=== PATIENT | female | born 2000 | race Caucasian/White ===

== ENCOUNTER 2022-09-30 15:20 | Observation (INO) ==
[2022-09-30 16:23] LABS: Hematocrit (blood only) 29.4 % (37.0-47.0); Hemoglobin 9.6 g/dl (12.0-16.0); Mean Corpuscular Hemoglobin 26.5 pg (25.0-34.0); Mean Corpuscular Hgb Conc 32.7 g/dL (32.0-36.0); Mean Corpuscular Volume 81.2 fL (80.0-100.0); Mean Platelet Volume 10.4 fL (9.4-12.4); Nucleated RBC # (auto) 0.03 K/uL (0-0.12); Nucleated RBC % (auto) 0.2 %; Platelet Count 290 K/uL (130-400); Red Blood Count 3.62 M/uL (4.20-5.40)
[2022-09-30 16:39] LABS: Basophils # (auto) 0.04 K/uL (0-0.2); Basophils % (auto) 0.3 %; Eosinophils # (auto) 0.12 K/uL (0-0.50); Eosinophils % (auto) 0.9 %; Immature Granulocytes # (auto) 0.72 K/uL (0.01-0.20); Immature Granulocytes % (auto) 5.5 %; Lymphocytes # (auto) 1.49 K/uL (1.2-3.4); Lymphocytes % (auto) 11.4 %; Monocytes # (auto) 0.91 K/uL (0.11-0.59); Monocytes % (auto) 6.9 %; Neutrophils # (auto) 9.82 K/uL (1.40-6.50); Polychromasia 1+
[2022-09-30 17:17] LABS: Total Protein Urine Random 42.8 mg/dl (0-11.9)
[2022-09-30 17:18] LABS: Albumin Level 3.3 gm/dl (3.4-5.0); Anion Gap 9 (3-11); Bilirubin,Total 0.2 mg/dl (0.2-1.0); Calcium 9.2 mg/dl (8.6-10.3); Carbon Dioxide 20 mmol/L (21-32); Chloride 103 mmol/L (98-107); Sodium 132 mmol/L (136-145)
[2022-09-30 17:23] LABS: Creatinine Urine Random 128.4 mg/dl; Protein Creatinine Ratio Urine 0.3 (0-0.2)
[2022-09-30 17:24] LABS: Alanine Aminotransferase 12 U/L (7-52); Albumin Globulin Ratio 0.9 (0.9-2); Alkaline Phosphatase 189 U/L (34-104); Aspartate Aminotransferase 20 U/L (13-39); BUN Creatinine Ratio 12.8 (10-20); Blood Urea Nitrogen 6 mg/dl (6-23); Creatinine Clr Calc Pharmacy 227.3 ml/min; Est GFR (African American) > 150.0 ml/min; Est GFR (Non-African American) 142.2 ml/min; Globulin 3.8 gm/dl (2.5-4.0); Glucose 101 mg/dl (70-99(Fasting)); Total Protein 7.1 gm/dl (6.0-8.3)
[2022-09-30] MEDS ORDERED: ACETAMINOPHEN 500 MG TAB PO PRN (18:33)
[2022-09-30] MEDS ORDERED: IRON SUCROSE 300 MG in SODIUM CHLORIDE 0.9% 250 ML IV ONE (19:00)
--- NOTE | 2022-09-30 20:47 | History & Physical Report ---
Date of Service September 30, 2022 Assessment & Plan (1) Elevated blood pressure affecting in third trimester, antepartum: Plan IUP at 37 2/7 weeks with elevated BP once in the office setting with headache and LLE edema. BP's have all been in normal range here in L&D. Headache is getting better with po Tylenol and a meal. I suspect her headache may also be in part due to low Hgb and Hematocrit. PET labs are also normal except for urine protein/creatinine ratio of 0.3 and Hgb of 9.6. We will watch overnight with serial labs and BP checks. We will also give 2 doses of Venofer 300mg during her stay. History of Present Illness Primary Care Provider: NO PCP Patient is a 22-year-old G1, P0 female EDC of 10/19/2022 who presented with a headache that she rates 9 out of 10 but without visual changes. She also noted increased swelling in her legs. She was evaluated in the office and her pressure was 140/90 so she was sent to labor and delivery for serial blood press ures and blood work. She denies any epigastric pain but she does feel she may be having some contractions at this point. GBS is positive. has also been complicated by iron deficiency anemia for which she may or may not been taking her iron regularly. Allergies Allergy/AdvReac Type Severity Reaction Status Date / Time latex Allergy Hives Verified 09/30/22 15:05 Home Medications Medication Instructions Recorded Confirmed Type prenat.vits,nia,mpq-dcfm-vgeun 1 tab PO DAILY 04/25/22 09/30/22 History ferrous sulfate 325 mg (65 mg 325 mg PO Q OTHER DAY #30 tabs 08/22/22 09/30/22 Rx iron) tablet Patient History Medical History (Updated 09/30/22 @ 20:53 by Britany Domingo MD, FACOG) UTI (urinary tract infection) Varicella vaccination Surgical History S/P wisdom tooth extraction Family History Grandmother (Maternal) Diabetes Denies family history of Ovarian cancer Breast cancer Colorectal cancer Social History (Updated 08/06/22 @ 21:21 by Irina L Pietropaolo, RN) Smoking Status: Former smoker Tobacco Type: E-cigarettes / Vaping Second Hand Exposure: No; Hx Alcohol Use: No Hx Substance Use: No Preferred Language: Hong Konger Rn Security Required: No Beliefs That Will Affect Care: None marital status: Single marital status details: estefany Romero (20) [phone] Current Living Situation: Significant Other Current Living Situation Comment: lives with fomarci, dede current occupational status: employed current occupation: [employer] Feels Safe at Home: Yes Review of Systems All systems reviewed & are unremarkable except as noted in HPI & below Physical Exam Constitutional: WD/WN, vitals as above Neurologic: reflexes are normal Psychiatric: A+Ox3, euthymic affect Genitourinary: OB Exam Abdomen: + vertex (by ultrasound), + estimated weight (6-7 pounds) and + irregular contractions Manual OB Exam: + cervical dilation fingertip, + cervical effacement 50% and + station high OB Exam Monitor Tracing: + external FHT monitor used, + external uterine monitor used, + category I and + normal FHT variability Results & Data Vital Signs (Past 12 Hours) Vital Signs Pulse Resp BP 09/30/22 16:23 97 H 22 123/74 09/30/22 18:17 96 H 09/30/22 18:17 108/64 09/30/22 18:08 99 H 09/30/22 18:08 120/73 09/30/22 17:58 94 H 09/30/22 17:58 130/71 09/30/22 17:48 94 H 09/30/22 17:48 116/60 09/30/22 17:36 101 H 09/30/22 17:36 118/68 09/30/22 17:27 96 H 09/30/22 17:27 117/73 09/30/22 17:18 93 H 09/30/22 17:18 121/75 09/30/22 17:08 104 H 09/30/22 17:08 122/87 09/30/22 16:58 95 H 09/30/22 16:58 120/70 09/30/22 16:47 93 H 09/30/22 16:47 112/71 09/30/22 16:36 95 H 09/30/22 16:36 117/68 09/30/22 16:27 95 H 09/30/22 16:27 117/76 09/30/22 16:18 97 H 123/74 09/30/22 16:07 97 H 120/67 09/30/22 15:58 102 H 124/63 09/30/22 15:46 103 H 124/67 09/30/22 15:36 105 H 126/69 Coding Level of Care Code 01656 INT INP/OBS CARE 1/40MIN Diagnoses Elevated blood pressure affecting in third trimester, antepartum O16.3
[2022-09-30 23:50] LABS: Basophils # (auto) 0.04 K/uL (0-0.2); Basophils % (auto) 0.3 %; Eosinophils # (auto) 0.06 K/uL (0-0.50); Eosinophils % (auto) 0.5 %; Hematocrit (blood only) 29.5 % (37.0-47.0); Hemoglobin 9.7 g/dl (12.0-16.0); Immature Granulocytes # (auto) 0.57 K/uL (0.01-0.20); Immature Granulocytes % (auto) 4.5 %; Lymphocytes # (auto) 1.68 K/uL (1.2-3.4); Lymphocytes % (auto) 13.1 %; Mean Corpuscular Hemoglobin 26.6 pg (25.0-34.0); Mean Corpuscular Hgb Conc 32.9 g/dL (32.0-36.0); Mean Corpuscular Volume 80.8 fL (80.0-100.0); Mean Platelet Volume 10.4 fL (9.4-12.4); Monocytes # (auto) 0.66 K/uL (0.11-0.59); Monocytes % (auto) 5.2 %; Neutrophils # (auto) 9.79 K/uL (1.40-6.50); Neutrophils % (auto) 76.4 %; Nucleated RBC # (auto) 0.04 K/uL (0-0.12); Nucleated RBC % (auto) 0.3 %; Platelet Count 316 K/uL (130-400); RDW Coefficient of Variation 14.1 % (11.5-14.5); RDW Standard Deviation 41.2 fL (36.4-46.3); Red Blood Count 3.65 M/uL (4.20-5.40)
[2022-09-30] MEDS: BUTORPHANOL TARTRATE 1 MG/ML VIAL IV PRN (23:58)
[2022-10-01 00:12] LABS: Albumin Level 3.3 gm/dl (3.4-5.0); Bilirubin,Total 0.2 mg/dl (0.2-1.0); Creatinine Clr Calc Pharmacy 138.8 ml/min; Est GFR (African American) 128.8 ml/min; Est GFR (Non-African American) 111.1 ml/min; Total Protein 7.3 gm/dl (6.0-8.3)
[2022-10-01] MEDS: BUTORPHANOL TARTRATE 1 MG/ML VIAL IV PRN (03:06)
[2022-10-01 06:48] LABS: Hematocrit (blood only) 29.1 % (37.0-47.0); Hemoglobin 9.2 g/dl (12.0-16.0); Mean Corpuscular Hemoglobin 26.1 pg (25.0-34.0); Mean Corpuscular Hgb Conc 31.6 g/dL (32.0-36.0); Mean Corpuscular Volume 82.4 fL (80.0-100.0); Mean Platelet Volume 10.7 fL (9.4-12.4); Nucleated RBC # (auto) 0.05 K/uL (0-0.12); Nucleated RBC % (auto) 0.4 %; Platelet Count 297 K/uL (130-400); RDW Coefficient of Variation 14.2 % (11.5-14.5); Red Blood Count 3.53 M/uL (4.20-5.40); White Blood Count 13.65 K/ul (4.8-10.8)
[2022-10-01 06:59] LABS: Alanine Aminotransferase 12 U/L (7-52); Albumin Level 3.2 gm/dl (3.4-5.0); Alkaline Phosphatase 182 U/L (34-104); Aspartate Aminotransferase 17 U/L (13-39); Bilirubin,Total 0.2 mg/dl (0.2-1.0); Creatinine Clr Calc Pharmacy 194.3 ml/min; Est GFR (African American) > 150.0 ml/min
[2022-10-01 07:18] LABS: Basophils # (auto) 0.03 K/uL (0-0.2); Basophils % (auto) 0.2 %; Eosinophils # (auto) 0.13 K/uL (0-0.50); Immature Granulocytes # (auto) 0.71 K/uL (0.01-0.20); Immature Granulocytes % (auto) 5.2 %; Lymphocytes # (auto) 1.59 K/uL (1.2-3.4); Lymphocytes % (auto) 11.6 %; Monocytes # (auto) 1.11 K/uL (0.11-0.59); Monocytes % (auto) 8.1 %; Neutrophils # (auto) 10.08 K/uL (1.40-6.50); Neutrophils % (auto) 73.9 %
--- NOTE | 2022-10-01 07:33 | Obstetrical Progress Note ---
Date of Service October 01, 2022 Assessment & Plan (1) Elevated blood pressure affecting in third trimester, antepartum: Plan: BP normotensive during last 18 hours in L&D PIH labs are all normal- except urine protein/creatinine ratio at 0.3. will discharge to home and recheck BP in 1 week- sooner if any PET symptoms reoccur. Admission and Anticipated Discharge Date Admission Date: September 30, 2022 Subjective still complaining of back pain and feeling hot. patient also has been complaining of contractions as well. no change in discharge -no vaginal bleeding. no PIH symptoms. labs are all normal and BP has been normotensive. Review of Systems Review of Systems: All systems reviewed & are unremarkable except as noted in HPI & below Physical Exam Constitutional: WD/WN, vitals as above Psychiatric: A+Ox3, euthymic affect Genitourinary: OB Exam Abdomen: + vertex and + irregular contractions (artifact from patient activity but only sporadic contractions.) Manual OB Exam: + cervical dilation fingertip, + cervical effacement 50% and + station high OB Exam Monitor Tracing: + external FHT monitor used, + external uterine monitor used, + category I and + normal FHT variability Results & Data Vital Signs (Past 12 Hours) Vital Signs Temp Pulse Resp BP Pulse Ox 10/01/22 06:28 18 10/01/22 06:28 18 10/01/22 06:28 108 H 18 121/58 L 10/01/22 04:00 18 10/01/22 04:00 98.2 F 18 10/01/22 04:01 93 H 120/66 94 10/01/22 04:00 98.2 F 102 H 18 97 10/01/22 03:55 104 H 97 10/01/22 03:50 106 H 97 10/01/22 03:45 88 96 10/01/22 03:40 107 H 96 10/01/22 03:35 105 H 96 10/01/22 03:30 101 H 96 10/01/22 03:25 96 H 98 10/01/22 03:20 97 H 97 10/01/22 01:43 98 H 98 10/01/22 01:38 92 H 98 10/01/22 01:33 98 H 98 10/01/22 01:28 102 H 98 10/01/22 01:23 103 H 97 10/01/22 01:18 109 H 98 10/01/22 01:13 98 H 97 10/01/22 01:08 104 H 98 10/01/22 01:03 104 H 97 10/01/22 00:58 107 H 97 10/01/22 00:53 103 H 97 10/01/22 00:48 98 H 97 10/01/22 00:43 103 H 97 10/01/22 00:38 104 H 98 10/01/22 00:33 99 H 97 10/01/22 00:28 95 H 97 10/01/22 00:23 108 H 98 10/01/22 00:00 18 10/01/22 00:00 98.6 F 18 10/01/22 00:18 98 H 98 10/01/22 00:13 106 H 98 10/01/22 00:08 103 H 98 10/01/22 00:03 98 H 98 09/30/22 23:49 100 H 09/30/22 23:49 132/68 09/30/22 20:19 110 H 09/30/22 20:19 123/65 09/30/22 20:05 117 H 09/30/22 20:05 116/64 09/30/22 19:51 116 H 09/30/22 19:51 137/60 PG Care Time/CCT Total # of Minutes Spent Total Time Spent with Patient: Total time spent is greater than 50% in coordination of care (as documented) at patient's floor/unit and/or counseling patient: Coding Level of Care Code 87276 SUB INP/OBS CARE 2/35MIN Diagnoses Elevated blood pressure affecting in third trimester, antepartum O16.3
== END 2022-10-01 07:57 | disposition home or self-care (01) ==
LOC: 4S1 15:20 → OPB 15:20 → 4S1 15:21

== ENCOUNTER 2022-10-14 12:51 | Inpatient (IN) ==
[2022-10-14] MEDS ORDERED: OXYTOCIN 30 UNITS/500 ML BAG IV PRN ×3 (14:08→22:08)
[2022-10-14] MEDS ORDERED: LACTATED RINGER'S 1,000 ML IV PRN (14:08)
[2022-10-14] MEDS ORDERED: LIDOCAINE 1% LOCAL 20 ML VIAL INFIL PRN (14:08)
--- NOTE | 2022-10-14 14:21 | History & Physical Report ---
Date of Service October 14, 2022 Assessment & Plan (1) 39 weeks gestation of : Plan Isela is a 22 year-old at 39w2d who presents today after SROM. -Rupture of membranes confirmed in outpatient office, patient admitted to L&D. -GBS positive, will start Penicillin -Currently at 2cm/80%. T cat 1. -Given 8+ hours since ROM and contractions only every 5 minutes, will start Pitocin. Patient in agreement. -Patient inquires about epidural, can receive epidural when desired Admission and Anticipated Discharge Date Admission Date: October 14, 2022 History of Present Illness Primary Care Provider: NO PCP Isela is a 22 year-old at 39w2d who presents today after SROM. She notes that last night she was evaluated on L&D to rule out labor and decreased movement, after evaluation she was discharged to home. This morning she awoke at 5:30am to wet sheets- she does not know what time this started but has had fluid leaking since that time. Today she was evaluated in office by Dr. Vu and was found to have positive rupture of membranes. She notes +FM (increased from yesterday) and has contractions every 5 minutes. -B+/GBS positive/Rubella immune OB-[facility] A [facility] History -No prior pregnancies -No history of abnormal PAPs, no known history of STDs Allergies Allergy/AdvReac Type Severity Reaction Status Date / Time latex Allergy Hives Verified 10/14/22 12:22 Home Medications Medication Instructions Recorded Confirmed Type prenat.vits,nia,vxd-byiw-imord 1 tab PO DAILY 04/25/22 10/14/22 History ferrous sulfate 325 mg (65 mg 325 mg PO Q OTHER DAY #30 tabs 08/22/22 10/14/22 Rx iron) tablet Patient History Medical History UTI (urinary tract infection) Varicella vaccination Surgical History S/P wisdom tooth extraction Family History Grandmother (Maternal) Diabetes Denies family history of Ovarian cancer Breast cancer Colorectal cancer Social History (Updated 10/14/22 @ 13:31 by DESMOND Fabian Smoking Status: Former smoker Tobacco Type: E-cigarettes / Vaping Second Hand Exposure: No; Hx Alcohol Use: No Hx Substance Use: No Preferred Language: Slovenian Communication Ability: Effective Twist Tester Required: No Beliefs That Will Affect Care: None marital status: Single marital status details: estefany Romero (20) [phone] Current Living Situation: Spouse Current Living Situation Comment: lives with boyfriend and dog current occupational status: employed current occupation: [email or web address] Other Information That Helps Us Care for You: No Feels Safe at Home: Yes Safety Concerns: Feels Safe At This Time Assistive Devices: None LINEMAN A CLASS History Initial OB Labs-03/12/22 Blood Type & RH B positive Antibody Screen Negative HCT/HGB 40.3/13.4 Platelets 384 Hep C IgG 13yrs+ Old non-reactive Pap Test Chlamydia not detected Gonorrhea not detected Rubella Immune RPR non-reactive Urine Culture/Screen <30,000 mixed gram positive jazmin HBsAg non-reactive HIV non-reactive MCV 86.2 Review of Systems As per above Physical Exam Constitutional: WD/WN, vitals as above Eyes: Anicteric sclera ENMT: External ears and nose normal, moist mucous membranes Respiratory: No increased work of breathing, good aeration. Cardiovascular: Normal rate, regular rhythm. Skin: no rashes, warm and dry Genitourinary: Manual OB Exam: + cervical dilation 2 cm and + cervical effacement 80% OB Exam Monitor Tracing: + external FHT monitor used and + category I Exam per Dr. Vu (in outpatient office prior to arrival) Results & Data Vital Signs (Past 12 Hours) Vital Signs Temp Pulse Resp BP 10/14/22 13:31 36.8 C 20 10/14/22 13:14 97 H 134/86 Supervising Physician Co-Signing Physician Notes Resident Physician Supervision Note: I interviewed and examined the patient. Discussed with Dr. Woodall and agree with findings and plan as documented in the note. Any exceptions or clarifications are listed here: 39 weeks, prom for many hours. confirmed in the office, grossly ruptured. Some contractions but not a pattern. Plan pitocin augmentation, epidural on demand. Fetus is category one. but does have periods of some minimal variability. 8/8 bpp yesterday in the office after a reassuring but nonreactive nst. Has had some mildly elevated blood pressures in the last couple of weeks but no s/s of pet. Documented By: Ellen Monzon MD, FACOG Resident Activity Tracking Resident Involvement: Resident Care Provided Care Provided: OB Delivery
[2022-10-14] MEDS ORDERED: PENICILLIN G POTASSIUM 6 MU in DEXTROSE 5% 250 ML IV ONE (14:30)
[2022-10-14 14:49] LABS: Hematocrit (blood only) 33.6 % (37.0-47.0); Hemoglobin 10.9 g/dl (12.0-16.0); Mean Corpuscular Hemoglobin 27.2 pg (25.0-34.0); Mean Corpuscular Hgb Conc 32.4 g/dL (32.0-36.0); Mean Corpuscular Volume 83.8 fL (80.0-100.0); Mean Platelet Volume 11.2 fL (9.4-12.4); Platelet Count 294 K/uL (130-400); RDW Coefficient of Variation 18.1 % (11.5-14.5); RDW Standard Deviation 52.5 fL (36.4-46.3); Red Blood Count 4.01 M/uL (4.20-5.40); White Blood Count 14.83 K/ul (4.8-10.8)
[2022-10-14 15:27] LABS: Alanine Aminotransferase 13 U/L (7-52); Albumin Globulin Ratio 0.9 (0.9-2); Albumin Level 3.5 gm/dl (3.4-5.0); Alkaline Phosphatase 194 U/L (34-104); Anion Gap 9 (3-11); Aspartate Aminotransferase 20 U/L (13-39); Bilirubin,Total 0.3 mg/dl (0.2-1.0); Blood Urea Nitrogen 11 mg/dl (6-23); Calcium 9.5 mg/dl (8.6-10.3); Carbon Dioxide 21 mmol/L (21-32); Chloride 103 mmol/L (98-107); Creatinine Clr Calc Pharmacy 244.3 ml/min; Est GFR (African American) > 150.0 ml/min; Est GFR (Non-African American) 145.3 ml/min; Globulin 3.8 gm/dl (2.5-4.0); Glucose 87 mg/dl (70-99(Fasting)); Potassium 4.2 mmol/L (3.5-5.1); Sodium 133 mmol/L (136-145); Total Protein 7.3 gm/dl (6.0-8.3)
[2022-10-14] MEDS ORDERED: ePHEDrine sulfate 50 MG/ML AMP ONE (16:58)
[2022-10-14] MEDS ORDERED: fentaNYL citrate PF 100 MCG/2 ML VIAL ONE (16:58)
[2022-10-14] MEDS ORDERED: SODIUM CHLORIDE 0.9% PF INJ 10 ML VIAL ONE (16:58)
[2022-10-14] MEDS ORDERED: BUPIVACAINE 0.25% PF 30 ML VIAL ONE (16:58)
[2022-10-14] MEDS ORDERED: fentaNYL 2MCG/ML ROPIVACAINE 1.25MG/ML 100 ML BAG EPI ONE (16:59)
[2022-10-14] MEDS ORDERED: LIDOCAINE 2%/EPINEPHRINE 1:200,000 20 ML PF ONE (16:59)
[2022-10-14] MEDS ORDERED: PENICILLIN G POTASSIUM 3 MU in DEXTROSE 5% 100 ML IV PRN (17:09)
--- NOTE | 2022-10-14 17:18 | Anesthesiology Consultation ---
Date of Service October 14, 2022 Assessment & Plan (1) Encounter for pre-operative examination: Chart Review Chart Review: Patient NOT seen in Pre Admission Testing and Acceptable Risk for Labor Epidural Consults Requested none History Height/Weight Height: 5 ft 3 in Weight: 111.13 kg Allergies Allergy/AdvReac Type Severity Reaction Status Date / Time latex Allergy Hives Verified 10/14/22 12:22 Medications Home Medications Medication Instructions Recorded Confirmed Last Taken prenat.vits,nia,kxg-zdwk-nkasw 1 tab PO DAILY 04/25/22 10/14/22 10/14/22 ferrous sulfate 325 mg (65 mg 325 mg PO Q OTHER DAY #30 tabs 08/22/22 10/14/22 10/14/22 iron) tablet Active Medications Generic Name Dose Route Start Last Admin Trade Name Freq PRN Reason Stop Dose Admin Lactated Ringer's 1,000 mls @ 125 mls/hr 10/14/22 14:08 10/14/22 16:56 Lr IV 10/16/22 14:07 999 mls/hr .Q8H PRN Infusion L&D Protocol Protocol Oxytocin 30 units in 500 mls @ 4 mls/hr 10/14/22 14:08 10/14/22 16:15 Pitocin IV 10/16/22 14:07 0.24 units/hr .Q24H PRN 4 mls/hr Labor Induction/Augmentation Titration Protocol 0.24 UNITS/HR Past Medical History Medical History UTI (urinary tract infection) Varicella vaccination Past Family History Family History Grandmother (Maternal) Diabetes Denies family history of Ovarian cancer Breast cancer Colorectal cancer Past Surgical History Surgical History S/P wisdom tooth extraction Social History Smoking Status: Former smoker tobacco type: e-cigarettes Hx Alcohol Use: No Hx Substance Use: No substance use type: does not use Physical Exam Vital Signs Last Vital Signs Temp 98.6 F 10/14/22 15:35 Pulse 84 10/14/22 17:13 Resp 20 10/14/22 16:30 BP 140/94 10/14/22 17:13 Pulse Ox 97 10/14/22 17:13 Testing Laboratory Results 10/14/22 14:21 10/14/22 14:21 Blood Type B Positive 10/14/22 14:25 Antibody Screen NEGATIVE 10/14/22 14:25
[2022-10-14] MEDS ORDERED: NALBUPHINE HCL INJ 10 MG/ML AMP IV PRN (17:23)
[2022-10-14] MEDS ORDERED: fentaNYL 2MCG/ML ROPIVACAINE 1.25MG/ML 100 ML BAG EPI PRN (17:23)
[2022-10-14] MEDS ORDERED: ePHEDrine sulfate 50 MG/ML AMP IV PRN (17:23)
[2022-10-14] MEDS ORDERED: NALOXONE HCL 0.4 MG/1 ML VIAL/CARP IV PRN (17:23)
[2022-10-14] MEDS ORDERED: diphenhydrAMINE 50 MG/ML VIAL IV PRN (17:23)
[2022-10-14] MEDS ORDERED: NALOXONE HCL 1 MG in SODIUM CHLORIDE 0.9% 1000ML 1,000 ML IV PRN (17:23)
--- NOTE | 2022-10-14 19:00 | Labor Progress Brief Note ---
Date of Service October 14, 2022 Subjective comfortable with epidural Assessment & Plan (1) 39 weeks gestation of : (2) PROM (premature rupture of membranes): Plan making nice progress. fetus overall category one. anticipate . Admission and Anticipated Discharge Date Admission Date: October 14, 2022 Physical Exam Physical Exam: cx--5-6/100/-1 toco--q2-3min, pit at 6 efm--140s with mod variability, small accels, one variable noted. Results & Data Vital Signs (Past 12 Hours) Vital Signs Temp Pulse Resp BP Pulse Ox 10/14/22 13:31 36.8 C 20 10/14/22 18:54 96 10/14/22 18:54 117 H 10/14/22 18:54 102 H 118/63 10/14/22 18:49 105 H 96 10/14/22 18:44 99 H 97 10/14/22 18:39 107 H 107/53 L 97 10/14/22 18:30 20 10/14/22 18:30 20 10/14/22 18:34 102 H 97 10/14/22 18:29 106 H 97 10/14/22 18:26 102 H 120/59 L 10/14/22 18:24 103 H 95 10/14/22 18:19 104 H 96 10/14/22 18:14 103 H 96 10/14/22 18:09 97 10/14/22 18:09 105 H 10/14/22 18:09 100 H 109/58 L 10/14/22 18:04 98 H 111/56 L 95 10/14/22 18:00 18 10/14/22 18:00 18 10/14/22 17:59 102 H 117/61 95 10/14/22 17:55 91 H 113/64 10/14/22 17:54 90 96 10/14/22 17:48 97 H 96 10/14/22 17:47 81 137/67 10/14/22 17:45 37.1 C 92 H 172/85 H 10/14/22 17:43 89 158/96 H 96 10/14/22 17:41 93 H 141/93 H 10/14/22 17:39 85 135/76 10/14/22 17:38 95 H 95 10/14/22 17:37 109 H 139/86 10/14/22 17:35 97 H 136/80 10/14/22 17:33 90 96 10/14/22 17:28 106 H 97 10/14/22 17:27 106 H 94 10/14/22 17:23 100 H 96 10/14/22 17:00 20 10/14/22 17:00 20 10/14/22 17:18 89 96 10/14/22 17:13 97 10/14/22 17:13 84 10/14/22 17:13 72 140/94 10/14/22 16:00 20 10/14/22 16:00 20 10/14/22 16:30 20 10/14/22 16:30 20 10/14/22 15:35 37.0 C 10/14/22 15:30 20 10/14/22 15:30 20 10/14/22 15:00 20 10/14/22 15:00 20 10/14/22 14:30 20 10/14/22 14:30 20 10/14/22 15:31 96 H 137/82 10/14/22 14:00 20 10/14/22 14:00 20 10/14/22 13:14 97 H 134/86 Coding Level of Care Code None Diagnoses 39 weeks gestation of Z3A.39 PROM (premature rupture of membranes) O42.90
[2022-10-14] MEDS ORDERED: BENZOCAINE 20% AER SPR 82.5 GM CAN EXT PRN (22:08)
[2022-10-14] MEDS ORDERED: HYDROCORTISONE ACETATE 25 MG SUPP PR PRN (22:08)
[2022-10-14] MEDS ORDERED: oxyCODONE/ACETAMINOPHEN 5mg/325mg TAB PO PRN (22:08)
[2022-10-14] MEDS ORDERED: bisacodyL 10 MG SUPP PR PRN (22:08)
[2022-10-14] MEDS ORDERED: DIPHTHERIA/TETANUS/PERTUSSIS 0.5mL SYR/VIAL (Age 7+yrs) IM ONE (22:08)
[2022-10-14] MEDS ORDERED: ACETAMINOPHEN 325 MG TAB PO PRN (22:08)
--- NOTE | 2022-10-14 22:13 | Delivery Summary ---
Vaginal Delivery Summary Date of Service October 14, 2022 Vaginal Delivery Summary and 1st Degree LAC Pre-operative Diagnosis: at 39 2/7 weeks pprom Post-operative Diagnosis: same Procedure: pitocin augmentation, epidural first degree laceration and repair EBL: 400cc Anesthesia: epidural Procedure: Patient presented to labor and delivery with gross srom. She underwent pit augmentation and epidural. She progressed to c/c/+2. The patient pushed for about 20 minutes to deliver a viable female infant in farhad position. A loose nuchal cord x 1 was reduced. A shoulder dystocia was then encountered which was resolved in less than one minute with flatening the patient, suprapubic pressure and Andreas maneuver. The rest of the was then delivered without difficulty. The nose and mouth were bulb suctioned and the was placed in the maternal abdomen for drying and attention. Cord was clamped and cut at one minute of time. Cord blood and segment obtained. Placenta delivered spontaneous, intact with a three vessel cord. Cerv ix/sulci/rectum were intact. A first degree perineal laceration was repaired in the normal standard fashion. Hemostasis obtained with dilute pitocin and fundal massage. Apgars were 8/9. Mother and baby doing well at the end of the delivery. [facility] Vaginal Delivery Charge Delivery Type Details: and 1st Degree LAC
[2022-10-15] MEDS: IBUPROFEN 600 MG TAB PO PRN ×3 (05:11→20:31)
--- NOTE | 2022-10-15 05:44 | Obstetrical Progress Note ---
Date of Service October 15, 2022 Assessment & Plan (1) PROM (premature rupture of membranes): (2) Encounter for pre-operative examination: (3) Decreased movement: (4) 39 weeks gestation of : Plan Isela is a 22yo who is PPD#1 following at 39w3d. -Meeting all milestones -Vitals reviewed and WNL, hemoglobin stable -B+/GBS positive/Rubella immune. Received penicillin in labor. -Follow up in 6 weeks for appointment -Continue routine care -Placed order for MICHAEL hose per patient request Admission and Anticipated Discharge Date Admission Date: October 14, 2022 Supervising Physician Co-Signing Physician Notes Resident Physician Supervision Note: I interviewed and examined the patient. Discussed with Dr. Quach and agree with findings and plan as documented in the note. Any exceptions or clarifications are listed here: Doing well day one. Plan routine care. Documented By: Ellen Monzon MD, FACOG Subjective Isela is a 22 y/o female who is PPD #1 following delivery at 39 weeks. She reports feeling well overall this morning. Notes some mild abdominal cramping but pain is well managed on analgesics. Voiding without issue. Tolerating meals overnight and able to ambulate some. Endorses passing gas. Has some persistent lochia with some improvement this morning. Currently formula feeding. She requests MICHAEL hose. Review of Systems Constitutional: no fever, no chills and no sweats Respiratory: no cough, no dyspnea and no wheezing Cardiovascular: no chest pain, no palpitations and no calf pain Genitourinary: no dysuria Neurologic: no headache(s) Physical Exam Constitutional: WD/WN, vitals as above no acute distress Respiratory: no respiratory distress Auscultation: lungs clear to auscultation bilaterally; no rales, no rhonchi and no wheezes Cardiovascular: RRR, no murmur, no edema Extremities: no calf tenderness and no edema Negative Elsi's sign bilaterally. Gastrointestinal (Abdomen): Inspection/Auscultation: normal bowel sounds Genitourinary: Uterine fundus firm, palpable below the umbilicus. Results & Data Vital Signs (Past 12 Hours) Vital Signs Temp Pulse Pulse Resp BP BP Pulse Ox 10/15/22 04:15 36.8 C 102 H 16 112/70 97 10/15/22 00:31 37.5 C 117 H 16 140/80 97 10/15/22 00:09 141 H 18 117/56 L 10/14/22 23:54 121 H 129/62 10/14/22 23:39 127 H 18 125/57 L 10/14/22 23:24 118 H 132/69 10/14/22 23:09 112 H 18 135/65 10/14/22 22:54 114 H 18 131/60 10/14/22 22:39 109 H 18 135/75 10/14/22 22:24 108 H 18 132/70 10/14/22 22:09 18 10/14/22 22:09 37.0 C 18 10/14/22 22:09 97 10/14/22 22:09 113 H 10/14/22 22:09 116 H 118/59 L 10/14/22 22:04 113 H 97 10/14/22 21:59 149 H 96 10/14/22 21:54 139 H 98 10/14/22 21:55 137 H 107/52 L 10/14/22 21:49 136 H 98 10/14/22 21:46 118 H 87 L 10/14/22 21:44 145 H 98 10/14/22 21:39 162 H 96 10/14/22 21:34 113 H 99 10/14/22 21:29 114 H 98 10/14/22 21:24 117 H 98 10/14/22 21:19 114 H 98 10/14/22 21:00 37.2 C 10/14/22 21:14 118 H 97 10/14/22 21:09 98 10/14/22 21:09 118 H 10/14/22 21:09 112 H 126/73 10/14/22 21:04 113 H 98 10/14/22 20:59 114 H 98 10/14/22 20:55 121 H 215/82 H 10/14/22 20:54 126 H 99 10/14/22 20:49 104 H 97 10/14/22 20:44 108 H 98 10/14/22 20:39 98 10/14/22 20:39 102 H 10/14/22 20:39 103 H 123/72 10/14/22 20:34 102 H 98 10/14/22 20:29 104 H 99 10/14/22 20:25 105 H 128/73 10/14/22 20:24 97 H 98 10/14/22 20:19 100 H 98 10/14/22 20:14 99 H 97 10/14/22 20:09 98 H 133/79 99 10/14/22 20:04 96 H 97 10/14/22 19:59 97 H 100 10/14/22 19:54 88 96 10/14/22 19:55 88 123/64 10/14/22 19:49 90 97 10/14/22 19:44 89 97 10/14/22 19:40 86 137/80 10/14/22 19:39 86 97 10/14/22 19:34 91 H 97 10/14/22 19:29 91 H 98 10/14/22 19:24 93 H 96 10/14/22 19:25 80 132/77 10/14/22 19:19 97 H 97 10/14/22 19:14 93 H 97 10/14/22 19:10 100 H 119/60 10/14/22 19:09 100 H 96 10/14/22 19:04 97 H 98 10/14/22 18:59 104 H 98 10/14/22 19:00 18 10/14/22 19:00 36.8 C 18 10/14/22 18:54 96 10/14/22 18:54 117 H 10/14/22 18:54 102 H 118/63 10/14/22 18:49 105 H 96 10/14/22 18:44 99 H 97 10/14/22 18:39 107 H 107/53 L 97 10/14/22 18:30 20 10/14/22 18:30 20 10/14/22 18:34 102 H 97 10/14/22 18:29 106 H 97 10/14/22 18:26 102 H 120/59 L 10/14/22 18:24 103 H 95 10/14/22 18:19 104 H 96 10/14/22 18:14 103 H 96 10/14/22 18:09 97 10/14/22 18:09 105 H 10/14/22 18:09 100 H 109/58 L 10/14/22 18:04 98 H 111/56 L 95 10/14/22 18:00 18 10/14/22 18:00 18 10/14/22 17:59 102 H 117/61 95 10/14/22 17:55 91 H 113/64 10/14/22 17:54 90 96 10/14/22 17:48 97 H 96 10/14/22 17:47 81 137/67 10/14/22 17:45 37.1 C 92 H 172/85 H 10/14/22 17:43 89 158/96 H 96 O2 Del Method 10/15/22 04:15 Room Air 10/15/22 00:31 Room Air 10/15/22 00:09 10/14/22 23:54 10/14/22 23:39 10/14/22 23:24 10/14/22 23:09 10/14/22 22:54 10/14/22 22:39 10/14/22 22:24 10/14/22 22:09 10/14/22 22:09 10/14/22 22:09 10/14/22 22:09 10/14/22 22:09 10/14/22 22:04 10/14/22 21:59 10/14/22 21:54 10/14/22 21:55 10/14/22 21:49 10/14/22 21:46 10/14/22 21:44 10/14/22 21:39 10/14/22 21:34 10/14/22 21:29 10/14/22 21:24 10/14/22 21:19 10/14/22 21:00 10/14/22 21:14 10/14/22 21:09 10/14/22 21:09 10/14/22 21:09 10/14/22 21:04 10/14/22 20:59 10/14/22 20:55 10/14/22 20:54 10/14/22 20:49 10/14/22 20:44 10/14/22 20:39 10/14/22 20:39 10/14/22 20:39 10/14/22 20:34 10/14/22 20:29 10/14/22 20:25 10/14/22 20:24 10/14/22 20:19 10/14/22 20:14 10/14/22 20:09 10/14/22 20:04 10/14/22 19:59 10/14/22 19:54 10/14/22 19:55 10/14/22 19:49 10/14/22 19:44 10/14/22 19:40 10/14/22 19:39 10/14/22 19:34 10/14/22 19:29 10/14/22 19:24 10/14/22 19:25 10/14/22 19:19 10/14/22 19:14 10/14/22 19:10 10/14/22 19:09 10/14/22 19:04 10/14/22 18:59 10/14/22 19:00 10/14/22 19:00 10/14/22 18:54 10/14/22 18:54 10/14/22 18:54 10/14/22 18:49 10/14/22 18:44 10/14/22 18:39 10/14/22 18:30 10/14/22 18:30 10/14/22 18:34 10/14/22 18:29 10/14/22 18:26 10/14/22 18:24 10/14/22 18:19 10/14/22 18:14 10/14/22 18:09 10/14/22 18:09 10/14/22 18:09 10/14/22 18:04 10/14/22 18:00 10/14/22 18:00 10/14/22 17:59 10/14/22 17:55 10/14/22 17:54 10/14/22 17:48 10/14/22 17:47 10/14/22 17:45 10/14/22 17:43 Resident Activity Tracking Resident Involvement: Resident Care Provided Care Provided: OB Delivery
[2022-10-15 07:16] LABS: Hematocrit (blood only) 28.8 % (37.0-47.0); Hemoglobin 9.3 g/dl (12.0-16.0)
[2022-10-15] MEDS: DOCUSATE SODIUM 100 MG CAP PO SCH ×2 (09:39→20:17)
[2022-10-15] MEDS: PRENATAL VITAMIN 1 TAB PO SCH (09:39)
--- NOTE | 2022-10-15 10:08 | Anesthesia Procedure Note ---
Date of Service October 15, 2022 Anesthesia Post Epidural Note Vital Signs Vital Signs: Temp Pulse Resp BP Pulse Ox O2 Del Method 36.8 C 89 18 118/80 97 Room Air 10/15/22 07:59 10/15/22 07:59 10/15/22 07:59 10/15/22 07:59 10/15/22 07:59 10/15/22 07:59 Pain Intensity Right Lower Hip: Pain Intensity: 5 Notes Mental Status: alert / awake / arousable Nausea / Vomiting: adequately controlled Pain: adequately controlled Airway Patency, RR, SpO2: stable & adequate BP & HR: stable & adequate Hydration State: stable & adequate Neuraxial Anesthesia: was administered and sensory block is resolving Anesthetic Complications: no major complications apparent and Pt Satisfied with anesthetic care Epidural: Removed without complications and With tip intact
[2022-10-15] MEDS ORDERED: bisacodyL 5 MG TABEC PO SCH (20:00)
[2022-10-16] MEDS: IBUPROFEN 600 MG TAB PO PRN (00:26)
--- NOTE | 2022-10-16 07:23 | Obstetrical Progress Note ---
Date of Service October 16, 2022 Assessment & Plan (1) PROM (premature rupture of membranes): (2) Encounter for pre-operative examination: (3) Decreased movement: (4) 39 weeks gestation of : Plan Isela is a 22yo who is PPD#2 following at 39w3d. -Meeting all milestones -Vitals reviewed and WNL, hemoglobin stable -B+/GBS positive/Rubella immune. Received penicillin in labor. -Follow up in 6 weeks for appointment -Continue routine care -Plan for d/c today Admission and Anticipated Discharge Date Admission Date: October 14, 2022 Supervising Physician Co-Signing Physician Notes patient seen and evaluated with resident and agree with the above findings and plan. Routine OB care. Stable for discharge. Subjective Isela is a 22 y/o female who is PPD #2 following delivery at 39 weeks. She reports feeling well overall this morning. Notes some mild abdominal cramping but pain is well managed on analgesics. Voiding without issue. Tolerating meals overnight and able to ambulate some. Endorses passing gas. Has some persistent lochia with some improvement this morning. Currently formula feeding. Review of Systems Review of Systems: As per above Constitutional: no fever, no chills and no sweats Respiratory: no cough, no dyspnea and no wheezing Cardiovascular: no chest pain, no palpitations and no calf pain Genitourinary: no dysuria Neurologic: no headache(s) Physical Exam Constitutional: WD/WN, vitals as above no acute distress Respiratory: no respiratory distress Auscultation: lungs clear to auscultation bilaterally; no rales, no rhonchi and no wheezes Cardiovascular: RRR, no murmur, no edema Extremities: no calf tenderness and no edema Gastrointestinal (Abdomen): Inspection/Auscultation: normal bowel sounds Skin: no rashes, warm and dry Genitourinary: uterine fundus palpable below umbilicus Results & Data Vital Signs (Past 12 Hours) Vital Signs Temp Pulse Resp BP Pulse Ox O2 Del Method 10/15/22 23:30 36.8 C 102 H 17 121/76 97 Room Air 10/15/22 20:30 36.6 C 91 H 16 122/77 96 Room Air Resident Activity Tracking Resident Involvement: Resident Care Provided Care Provided: OB Delivery
[2022-10-16] MEDS: PRENATAL VITAMIN 1 TAB PO SCH (08:17)
[2022-10-16] MEDS: DOCUSATE SODIUM 100 MG CAP PO SCH (08:18)
== END 2022-10-16 10:50 | disposition home or self-care (01) | DRG 807 ==
LOC: OPB 12:51 → 4S1 12:52 → 4E2 10-15 00:35

== ENCOUNTER 2024-04-28 01:03 | Inpatient (IN) ==
[2024-04-28] MEDS ORDERED: CALCIUM CARBONATE 500 MG CHEWABLE TAB PO PRN (01:59)
[2024-04-28] MEDS ORDERED: ACETAMINOPHEN 325 MG TAB PO PRN (01:59)
[2024-04-28] MEDS ORDERED: LIDOCAINE 1% LOCAL 20 ML VIAL INFIL PRN (01:59)
[2024-04-28] MEDS ORDERED: OXYTOCIN 30 UNITS/NSS 30 UNITS/500 ML BAG IV PRN ×2 (01:59→11:31)
--- NOTE | 2024-04-28 02:30 | History & Physical Report ---
Date of Service April 28, 2024 Assessment & Plan (1) Gestational diabetes mellitus (GDM) affecting , antepartum: Plan: 23-year-old currently at 39 weeks 2 days gestational age presents in early labor. 1. Fetus: Category 1 tracing 2. Labor: Progressing spontaneously. Will continue to monitor and augment as needed 3. GBS negative 4. Mild range blood pressures noted at present. Will continue to monitor 5. GDM diet controlled. Plan for single glucose and if normal no additional care needed (2) Obesity in , antepartum: (3) Encounter for supervision of normal in multigravida: (4) Active labor: Admission and Anticipated Discharge Date Admission Date: April 28, 2024 History of Present Illness Primary Care Provider: NO PCP 23-year-old G2, P1 currently at 39 weeks 2 days gestational age presents with painful contractions. As noted progressively worsening contractions throughout the evening. Denying leakage of fluid, vaginal bleeding and reported good movement. complicated by diet-controlled gestational diabetes and BMI greater than 40 Allergies Allergy/AdvReac Type Severity Reaction Status Date / Time latex Allergy Intermediate Hives at Verified 04/25/24 13:58 contact Home Medications Medication Instructions Recorded Confirmed Type prenat.vits,nia,aye-[id number] 1 tab PO DAILY 04/25/22 04/25/24 History acetone (urine) test (Ketone Urine #50 ea 03/14/24 04/20/24 Rx Test strips) blood sugar diagnostic (OneTouch #150 ea 03/14/24 04/20/24 Rx Verio test strips) blood-glucose meter (OneTouch #1 ea 03/14/24 04/20/24 Rx Verio Reflect Meter) lancets 33 gauge (OneTouch Delica #150 ea 03/14/24 04/20/24 Rx Plus Lancet) ferrous sulfate 325 mg (65 mg 325 mg PO DAILY 04/25/24 04/25/24 History iron) tablet (Iron (ferrous sulfate)) Patient History Medical History ADHD Elevated blood pressure affecting in third trimester, antepartum only with last (not current ) Gestational diabetes diet controlled Hx: UTI (urinary tract infection) not currently "prone to UTI's" Post depression Vaginal discharge during current problem Surgical History History of anesthesia reaction "woke up screaming" [place] teeth removed Family History Grandmother (Maternal) Diabetes Kidney disease Grandfather (Maternal) CHF (congestive heart failure) Grandfather Myocardial infarction Grandmother Myocardial infarction Other No family history of adverse response to anesthesia Denies family history of Ovarian cancer Prostate cancer Breast cancer Colorectal cancer Social History (Updated 09/08/23 @ 14:34 by Keshia Elizabeth, DEANDRE) Smoking Status: Former smoker Tobacco Type: E-cigarettes / Vaping Cigarettes Per Day: quit 08/28/23; Second Hand Exposure: No; Do You Dip or Chew Tobacco: No; Tobacco Cessation Education Requested by Patient: No Hx Alcohol Use: No Hx Substance Use: No Preferred Language: Chilean Communication Ability: Effective Machine Hose Cutter Required: No Beliefs That Will Affect Care: None marital status: marital status details: estefany Romero [phone] Current Living Situation: Spouse and Family Current Living Situation Comment: and daughter current occupational status: unemployed current occupation: Other Information That Helps Us Care for You: No Feels Safe at Home: Yes Safety Concerns: Feels Safe At This Time Assistive Devices: Glasses Physical Exam Genitourinary: OB Exam Abdomen: + vertex Manual OB Exam: + cervical dilation 4 cm, + cervical effacement 70% and + station -2 OB Exam Monitor Tracing: + external FHT monitor used, + external uterine monitor used, + category I and + normal FHT variability Exam per nurse Results & Data Vital Signs (Past 12 Hours) Vital Signs Temp Pulse Resp BP 04/28/24 01:34 36.9 C 18 04/28/24 01:22 67 140/88 04/28/24 01:20 70 143/94 H Code Status & VTE Plan VTE Prophylaxis Plan VTE Prophylaxis will be ordered: No Reason for no VTE drug order: Treatment not indicated Coding Level of Care Code None Diagnoses Gestational diabetes mellitus (GDM) affecting , antepartum O24.419 Obesity in , antepartum O99.210 Encounter for supervision of normal in multigravida Z34.80 Active labor O60.00
[2024-04-28 02:39] LABS: Hematocrit (blood only) 31.8 % (37.0-47.0); Hemoglobin 10.2 g/dl (12.0-16.0); Mean Corpuscular Hemoglobin 24.9 pg (25.0-34.0); Mean Corpuscular Hgb Conc 32.1 g/dL (32.0-36.0); Mean Corpuscular Volume 77.6 fL (80.0-100.0); Mean Platelet Volume 11.9 fL (9.4-12.4); Nucleated RBC # (auto) 0.02 K/uL (0.00-0.12); Nucleated RBC % (auto) 0.2 %; Platelet Count 279 K/uL (130-400); RDW Coefficient of Variation 15.4 % (11.5-14.5); RDW Standard Deviation 42.4 fL (36.4-46.3); White Blood Count 12.42 K/ul (4.8-10.8)
[2024-04-28] MEDS: LACTATED RINGER'S 1,000 ML IV SCH (06:15)
[2024-04-28] MEDS ORDERED: SODIUM CHLORIDE 0.9% PF INJ 10 ML VIAL EPI PRN (06:22)
[2024-04-28] MEDS ORDERED: fentaNYL citrate PF 100 MCG/2 ML VIAL EPI PRN (06:22)
[2024-04-28] MEDS ORDERED: ROPIVACAINE 0.5% PF 5 MG/ML 20 ML VIAL EPI PRN (06:22)
[2024-04-28] MEDS ORDERED: fentANYL 2 MCG/ML BUPIVacaine 0.125%-NSS 100ML BAG EPI PRN (06:22)
[2024-04-28] MEDS ORDERED: LIDOCAINE 2% MPF LOCAL 5 ML VIAL EPI PRN (06:22)
[2024-04-28] MEDS ORDERED: NALOXONE HCL 1 MG in SODIUM CHLORIDE 0.9% 1,000 ML IV PRN (06:22)
[2024-04-28] MEDS ORDERED: NALOXONE HCL 0.4 MG/1 ML VIAL/CARP IV PRN (06:22)
[2024-04-28] MEDS ORDERED: ePHEDrine sulfate 50 MG/ML AMP IV PRN (06:22)
[2024-04-28] MEDS ORDERED: BUPIVACAINE 0.25% PF 30 ML VIAL EPI PRN (06:22)
[2024-04-28] MEDS ORDERED: NALBUPHINE HCL INJ 10 MG/ML AMP IV PRN (06:22)
[2024-04-28] MEDS ORDERED: diphenhydrAMINE 50 MG/ML VIAL IV PRN (06:22)
--- NOTE | 2024-04-28 06:29 | Anesthesiology Consultation ---
Date of Service April 28, 2024 Assessment & Plan Chart Review Chart Review: Patient NOT seen in Pre Admission Testing and Acceptable Risk for Labor Epidural Consults Requested none ASA ASA3 Proposed Anesthesia Anesthesia Type: Labor Epidural Risk / Benefits Reviewed With: PT / POA / Parent / Guardian, Accepts Plan and Informed Consent Obtained History Height/Weight Height: 5 ft 3 in Weight: 115.212 kg Allergies Allergy/AdvReac Type Severity Reaction Status Date / Time latex Allergy Intermediate Hives at Verified 04/25/24 13:58 contact Medications Home Medications Medication Instructions Recorded Confirmed Last Taken prenat.vits,nia,nmh-hmmj-hxhlq 1 tab PO DAILY 04/25/22 04/25/24 04/24/24 22:00 acetone (urine) test (Ketone Urine #50 ea 03/14/24 04/20/24 Unknown Test strips) blood sugar diagnostic (OneTouch #150 ea 03/14/24 04/20/24 Unknown Verio test strips) blood-glucose meter (OneTouch #1 ea 03/14/24 04/20/24 Unknown Verio Reflect Meter) lancets 33 gauge (OneTouch Delica #150 ea 03/14/24 04/20/24 Unknown Plus Lancet) ferrous sulfate 325 mg (65 mg 325 mg PO DAILY 04/25/24 04/25/24 04/24/24 22:00 iron) tablet (Iron (ferrous sulfate)) Active Medications Generic Name Dose Route Start Last Admin Trade Name Freq PRN Reason Stop Dose Admin Lactated Ringer's 1,000 mls @ 125 mls/hr 04/28/24 06:15 04/28/24 06:15 Lr IV 04/29/24 06:14 999 mls/hr .Q8H RENEE Administration NPO Date Last Intake of Fluids: 04/28/24 Time Last Intake of Fluids: 03:00 Date Last Intake of Solids: 04/28/24 Time Last Intake of Solids: 03:00 Past Medical History Medical History Gestational diabetes diet controlled Hx: UTI (urinary tract infection) not currently "prone to UTI's" Post depression ADHD Vaginal discharge during current problem Elevated blood pressure affecting in third trimester, antepartum only with last (not current ) Exercise / Class Metabolic Activity 1 > 8 Run/Swim/Ski/Tennis Past Family History Family History Grandmother (Maternal) Diabetes Kidney disease Grandfather (Maternal) CHF (congestive heart failure) Grandfather Myocardial infarction Grandmother Myocardial infarction Other No family history of adverse response to anesthesia Denies family history of Ovarian cancer Prostate cancer Breast cancer Colorectal cancer Past Surgical History Surgical History History of anesthesia reaction "woke up screaming" [place] teeth removed Past Anesthesia History No Hx of Anesthesia Complications and No Family Hx of Anesthesia Complications History of PONV No Hx of PONV and No Hx of Motion Sickness Social History Smoking Status: Former smoker tobacco type: e-cigarettes Smoking cigarettes per day: quit 08/28/23 Do You Dip or Chew Tobacco: No Hx Alcohol Use: No Hx Substance Use: No substance use type: does not use Review of Systems ROS Unobtainable: All systems reviewed & are unremarkable except as noted in HPI & below Physical Exam Vital Signs Last Vital Signs Temp 36.9 C 04/28/24 01:34 Pulse 93 H 04/28/24 06:25 Resp 18 04/28/24 01:34 BP 132/81 04/28/24 06:01 Pulse Ox 94 04/28/24 06:25 ENMT Mouth: no TMJ abnormality Thyromental Distance: > or= 3.5 Finger Breadths Mallampati Class: II Neck normal visual inspection and trachea midline; neck extension not limited Respiratory normal respiratory effort Auscultation: lungs clear to auscultation bilaterally Cardiovascular Rate/Rhythm: regular rate and regular rhythm Heart Sounds: no murmur Musculoskeletal Spine: normal cervical ROM Extremities: full ROM of extremities Neurologic moves all extremities Psychiatric Orientation: alert and oriented x 3 Testing Laboratory Results 04/28/24 02:09 04/28/24 02:12 POC Glucose 100 H
[2024-04-28] MEDS: fentANYL 2 MCG/ML BUPIVacaine 0.125%-NSS 100ML BAG ONE (06:51)
[2024-04-28] MEDS: BUPIVACAINE 0.25% PF 30 ML VIAL ONE (06:53)
[2024-04-28] MEDS: LIDOCAINE 2%/EPINEPHRINE 1:200,000 20 ML PF ONE (06:53)
[2024-04-28] MEDS: fentaNYL citrate PF 100 MCG/2 ML VIAL ONE (06:53)
[2024-04-28] MEDS: SODIUM CHLORIDE 0.9% PF INJ 10 ML VIAL ONE (06:54)
[2024-04-28] MEDS: ePHEDrine sulfate 50 MG/ML AMP ONE (07:10)
[2024-04-28] MEDS: OXYTOCIN 30 UNITS/NSS 30 UNITS/500 ML BAG IV PRN (08:33)
--- NOTE | 2024-04-28 11:06 | Delivery Summary ---
Vaginal Delivery Summary Date of Service April 28, 2024 Vaginal Delivery Summary DIAGNOSES: 1. [place] intrauterine at 39w2d gestation. 2. Spontaneous onset of labor. 3. Group B Streptococcus Neg 4. Gestational diabetes 5. Shoulder dystocia. PROCEDURE: Spontaneous vaginal delivery without laceration. SURGEON: Gin Eldridge MD. SIGN MANUFACTURER: None. ESTIMATED BLOOD LOSS: 150 mL. COMPLICATIONS: None. PLACENTA: Spontaneous and intact with a 3-vessel cord. DISPOSITION: Stable to labor and delivery. DESCRIPTION: The patient pushed well and brought the head to in LOP position. A turtle sign was noted at delivery of the head. There was 1 loop of nuchal cord. The left shoulder was intially anterior. The shoulders did not deliver with the next pushes, so Andreas and Suprapubic were employed. At first there was still no movement, however with the delivering physician's hand introduced to the posterior aspect of the vagina, slight rotational movement was felt and this was encouraged with a hand cradling the baby's R upper arm. The baby spun 180 degrees and delivered with the R shoulder as the anterior one. The was making respiratory efforts. The cord was doubly clamped by the MD and then quickly cut by the FOB, and the went directly to the warmer. It was noted to recover quickly and both upper extremities were seen to move normally and make grasping / splaying motions with its hands. The placenta delivered with gentle traction and was noted to be intact and with a 3VC, which did avulse during delivery. The cervix, vagina and perineum were examined and were found to be without defect requiring repair. The fundus was firm and lochia minimal immediately after delivery. [facility] Vaginal Delivery Charge Vaginal Delivery Codes: 93630 global code for the antepartum, delivery, and post-
--- NOTE | 2024-04-28 11:28 | Anesthesia Procedure Note ---
Date of Service April 28, 2024 Anesthesia Post Epidural Note Vital Signs Vital Signs: Temp Pulse Resp BP Pulse Ox 98.4 F 94 H 18 121/80 86 L 04/28/24 07:05 04/28/24 10:50 04/28/24 09:05 04/28/24 10:40 04/28/24 10:50 Notes Mental Status: alert / awake / arousable and participated in evaluation Nausea / Vomiting: adequately controlled Pain: adequately controlled Airway Patency, RR, SpO2: stable & adequate BP & HR: stable & adequate Hydration State: stable & adequate Neuraxial Anesthesia: was administered and sensory block is resolving Anesthetic Complications: no major complications apparent and Pt Satisfied with anesthetic care Epidural: Removed without complications and With tip intact
[2024-04-28] MEDS ORDERED: BENZOCAINE 20% SPRY 85 APPLN/85 GM CAN EXT PRN (11:31)
[2024-04-28] MEDS ORDERED: HYDROCORTISONE ACETATE 25 MG SUPP PR PRN (11:31)
[2024-04-28] MEDS ORDERED: bisacodyL 10 MG SUPP PR PRN (11:31)
[2024-04-28] MEDS ORDERED: oxyCODONE/ACETAMINOPHEN 5mg/325mg TAB PO PRN (11:31)
[2024-04-28] MEDS: IBUPROFEN 600 MG TAB PO PRN (17:57)
[2024-04-28] MEDS: DIPHTHER/TETAN/PERTUS Vaccine (Tdap, Adol/Adult) 0.5mL IM ONE (19:30)
[2024-04-28] MEDS: BUPIVACAINE 0.25% PF 30 ML VIAL EPI STA (19:31)
[2024-04-28] MEDS: fentaNYL citrate PF 100 MCG/2 ML VIAL EPI STA (19:31)
[2024-04-28] MEDS: SODIUM CHLORIDE 0.9% PF INJ 10 ML VIAL EPI STA (19:31)
[2024-04-28] MEDS: LIDOCAINE 2%/EPINEPHRINE 1:200,000 20 ML PF EPI STA (19:31)
[2024-04-28] MEDS: ACETAMINOPHEN 325 MG TAB PO PRN (20:44)
[2024-04-28] MEDS: DOCUSATE SODIUM 100 MG CAP PO SCH (20:44)
--- NOTE | 2024-04-29 06:11 | Obstetrical Progress Note ---
Date of Service <Faisal AcunaAdele Tay DO - Last Filed: 04/29/24 07:20> April 29, 2024 Assessment & Plan <Faisal WallaceDO shabana - Last Filed: 04/29/24 07:20> (1) state: Patient is a 24yo pp day 1 s/p . Feeling well this morning, BP slightly decreased but asymptomatic and otherwise VSS. Continue care Ambulation and as tolerated Pain control Hgb: 10.2, asymptomatic Home: today or tomorrow Follow up with Dr. Eldridge in 6wks. <Gin Eldridge MD - Last Filed: 04/29/24 07:42> (1) state: Subjective <Faisal Yates DO Jasvir - Last Filed: 04/29/24 07:20> Patient is a 24yo pp day 1 s/p . Ambulation: yes Voiding: urinated, has BM Passing gas: yes Diet tolerance: yes, OB reg Lochia: steady Feeding type: breast, going well Current pain: minimal Resting comfortably this AM in NAD. Denies fever, chills, headache, vision changes, chest pain, SOB, abdominal pain, LE pain/swelling, or LE numbness/tingling. Review of Systems as above Physical Exam <Faisal AcunaAdele JasvirDO shabana - Last Filed: 04/29/24 07:20> General: A&Ox4, resting comfortably in NAD, nontoxic in appearance Skin: warm, dry, intact HEENT: NC/AT, anicteric sclerae, conjunctiva w/o injection, moist mucous membranes Heart: +s1/s2, RRR, no m/r/g Lungs: equal air entry b/l, clear to auscultation b/l, no wheeze, rales, or rhonchi Abd: , exam deferred Ext: no significant swelling, no erythema or tenderness to palpation; no cyanosis or clubbing Neuro: speech intact, no facial droop, moves all extremities on command Results & Data <Faisal AcunaAdele Tay DO - Last Filed: 04/29/24 07:20> Vital Signs (Past 12 Hours) Vital Signs Temp Pulse Resp BP Pulse Ox O2 Del Method 04/29/24 03:19 36.5 C 69 18 99/61 L 98 Room Air 04/28/24 23:20 36.9 C 71 18 120/77 98 Room Air 04/28/24 19:11 36.8 C 80 16 118/73 97 Room Air Supervising Physician <Gin Eldridge MD - Last Filed: 04/29/24 07:42> Co-Signing Physician Notes Resident Physician Supervision Note: I interviewed and examined the patient. Discussed with Dr. Tay and agree with findings and plan as documented in the note. Any exceptions or clarifications are listed here: [ ] Documented By: Gin Eldridge MD, FACOG Resident Activity Tracking <Faisal Tay DO - Last Filed: 04/29/24 07:20> Resident Involvement: Resident Care Provided Care Provided: OB Delivery
[2024-04-29 08:09] LABS: Hematocrit (blood only) 30.3 % (37.0-47.0); Hemoglobin 9.6 g/dl (12.0-16.0); Mean Corpuscular Hemoglobin 24.5 pg (25.0-34.0); Mean Corpuscular Hgb Conc 31.7 g/dL (32.0-36.0); Mean Corpuscular Volume 77.3 fL (80.0-100.0); Mean Platelet Volume 11.5 fL (9.4-12.4); Platelet Count 219 K/uL (130-400); RDW Coefficient of Variation 15.8 % (11.5-14.5); RDW Standard Deviation 43.1 fL (36.4-46.3); Red Blood Count 3.92 M/uL (4.20-5.40); White Blood Count 12.04 K/ul (4.8-10.8)
[2024-04-29] MEDS: PRENATAL VITAMIN 1 TAB PO SCH (08:33)
[2024-04-29] MEDS: bisacodyL 5 MG TABEC PO SCH (19:18)
--- NOTE | 2024-04-30 07:25 | Obstetrical Progress Note ---
Date of Service April 30, 2024 Assessment & Plan (1) state: Plan dc home, stable. routine pp instructions reviewed. f/u 6wk pp check. discussed depression, will call with any concerns. bottle, rhpos. ri. hemoglobin pending. Subjective Ambulation: ambulating normally Voiding: no voiding problems Diet Tolerance:: regular diet Lochia:: Small Feeding Type:: bottle feeding plans to try to breastfeed when she gets home and in more comfortable environment. also has some mid abd cramps. Constitutional: + as per Subjective / HPI Physical Exam Constitutional WD/WN, vitals as above Respiratory normal respiratory effort, lungs clear to auscultation Cardiovascular Rate/Rhythm: regular rate and regular rhythm Gastrointestinal (Abdomen) Inspection/Auscultation: abdomen normal to inspection Percussion/Palpation: abdomen soft (obese) Fundus firm 2cm down Musculoskeletal nt calves tr edema Neurologic grossly normal Psychiatric A+Ox3, euthymic affect Results & Data Vital Signs (Past 12 Hours) Vital Signs Temp Pulse Resp BP Pulse Ox O2 Del Method 04/29/24 23:15 97.7 F 84 16 128/81 99 Room Air
[2024-04-30 08:01] VITALS: BP 123/80; RESP 18; TEMP 98.1; O2SAT 97
[2024-04-30 08:15] LABS: Hematocrit (blood only) 28.9 % (37.0-47.0); Hemoglobin 9.2 g/dl (12.0-16.0)
[2024-04-30 11:43] VITALS: PULSE 84
== END 2024-04-30 14:04 | disposition home or self-care (01) | DRG 806 ==
LOC: OPB 01:03 → 4S1 01:05 → 4E2 15:00